=== PATIENT | male | born 1980 | race Caucasian/White ===

== ENCOUNTER 2017-12-12 21:32 | Emergency (ER) | payer MEDICAID ==
[~2017-12-12] VITALS: Ht 198.1 cm; Wt 113.0 kg
[~2017-12-12 21:32] MED LIST: BENZ-16 PO; DIPH-423 PO; DIPH25CA83 PO; IBUP-1574 PO; IBUP-1984 PO; NAPR-56 PO; NO HOME MEDS
[2017-12-12 21:34] VITALS: BP 135/93
[2017-12-12] MEDS ORDERED: CYCL-1 PO (21:56)
[2017-12-12] MEDS ORDERED: orphenadrine citrate 60mg/2ml inj. IM ONE (22:00)
[2017-12-12] MEDS ORDERED: ketorolac tromethamine 15mg/ml inj. IM ONE (22:00)
== END 2017-12-12 22:15 | disposition home or self-care (01) ==
LOC: ER 21:32
DX: S39.012A Strain of muscle, fascia and tendon of lower back, initial encounter (principal); G89.29 Other chronic pain; F12.10 Cannabis abuse, uncomplicated; F15.10 Other stimulant abuse, uncomplicated; Z79.899 Other long term (current) drug therapy; W01.0XXA Fall on same level from slipping, tripping and stumbling without subsequent striking against object, initial encounter; Y93.89 Activity, other specified; Y92.89 Other specified places as the place of occurrence of the external cause; Y99.8 Other external cause status
CPT/HCPCS: 99284; J1885; J2360

== ENCOUNTER 2018-01-22 11:37 | Emergency (ER) | payer MEDICAID ==
[~2018-01-22] VITALS: Ht 198.1 cm; Wt 118.0 kg
[~2018-01-22 11:37] MED LIST changes: +CYCL-1 PO
[2018-01-22 12:04] LABS: BASOPHILS % (AUTO) 0.5 % (0-1); EOSINOPHILS # (AUTO) 0.2 X10'3 (0-0.9); EOSINOPHILS % (AUTO) 3.1 % (0-6); HEMATOCRIT 49.6 % (42.0-52.0); HEMOGLOBIN 16.8 g/dl (14.0-17.9); LYMPHOCYTES # (AUTO) 1.7 X10'3 (1.1-4.8); LYMPHOCYTES % (AUTO) 23.9 % (21-51); MEAN CORPUSCULAR HGB CONC 33.9 % (33.0-36.5); MEAN CORPUSCULAR VOLUME 91.4 FL (78-98); MEAN PLATELET VOLUME 7.5 FL (7.4-10.4); MONOCYTES # (AUTO) 0.4 X10'3 (0-0.9); MONOCYTES % (AUTO) 5.2 % (2-12); NEUTROPHILS # (AUTO) 4.9 X10'3 (1.8-7.7); NEUTROPHILS % (AUTO) 67.3 % (42-75); PLATELET COUNT 233 X10'3 (140-440); RED BLOOD COUNT 5.43 X10'6 (4.70-6.10); RED CELL DISTRIBUTION WIDTH 13.7 % (11.5-14.5); WHITE BLOOD COUNT 7.3 X10'3 (4.5-11.0)
[2018-01-22 12:15] LABS: PARTIAL THROMBOPLASTIN TIME 27 SECONDS (22-32); PROTHROMBIN TIME 10.1 SECONDS (9.0-12.0)
[2018-01-22 12:21] LABS: ALANINE AMINOTRANSFERASE 100 U/L (12-78); ALBUMIN 3.8 G/DL (3.4-5.0); ALBUMIN/GLOBULIN RATIO 0.9 (1.1-1.5); ALKALINE PHOSPHATASE 109 IU/L (46-116); ANION GAP 13 (8-16); ASPARTATE AMINO TRANSFERASE 46 U/L (10-37); BILIRUBIN,TOTAL 0.4 MG/DL (0.1-1.0); BLOOD UREA NITROGEN 18 MG/DL (7-18); BUN/CREATININE RATIO 18.9 (5.4-32.0); CALCIUM 8.5 MG/DL (8.5-10.1); CHLORIDE 102 MMOL/L (99-107); CREATININE 0.95 MG/DL (0.60-1.10); GLUCOSE 124 MG/DL (70-104); POTASSIUM 3.8 MMOL/L (3.5-5.1); SODIUM 139 MMOL/L (135-145); TOTAL CARBON DIOXIDE 24.1 MMOL/L (24-32); TOTAL PROTEIN 7.9 G/DL (6.4-8.2); eGFR 89 ML/MIN
[2018-01-22 12:41] VITALS: BP 153/97
== END 2018-01-22 13:08 | disposition home or self-care (01) ==
LOC: ER 11:37
DX: R00.2 Palpitations (principal); R42 Dizziness and giddiness; G89.29 Other chronic pain; F17.200 Nicotine dependence, unspecified, uncomplicated; F12.90 Cannabis use, unspecified, uncomplicated; F15.90 Other stimulant use, unspecified, uncomplicated; Z79.899 Other long term (current) drug therapy
CPT/HCPCS: 36415; 71045; 80053; 84484; 85025; 85610; 85730; 93005; 99285; J7030

== ENCOUNTER 2018-02-03 12:12 | Emergency (ER) | payer MEDICAID ==
[~2018-02-03] VITALS: Ht 198.1 cm; Wt 125.3 kg
[2018-02-03 12:15] VITALS: BP 171/91
== END 2018-02-03 13:37 | disposition home or self-care (01) ==
LOC: ER 12:13
DX: R42 Dizziness and giddiness (principal); G89.29 Other chronic pain; F15.90 Other stimulant use, unspecified, uncomplicated; F12.90 Cannabis use, unspecified, uncomplicated; Z00.00 Encounter for general adult medical examination without abnormal findings; Z79.899 Other long term (current) drug therapy
CPT/HCPCS: 93005; 99283

== ENCOUNTER 2018-03-17 04:04 | Emergency (ER) | payer MEDICAID ==
[~2018-03-17] VITALS: Ht 195.6 cm; Wt 120.4 kg
[2018-03-17 05:44] VITALS: BP 113/70
== END 2018-03-17 06:26 | disposition home or self-care (01) ==
LOC: ER 04:04
DX: R07.9 Chest pain, unspecified (principal); F17.210 Nicotine dependence, cigarettes, uncomplicated; G89.29 Other chronic pain; F12.90 Cannabis use, unspecified, uncomplicated; F15.90 Other stimulant use, unspecified, uncomplicated
CPT/HCPCS: 99281

== ENCOUNTER 2018-06-26 16:02 | Emergency (ER) | payer MEDICAID ==
[~2018-06-26] VITALS: Ht 195.6 cm; Wt 123.6 kg
[2018-06-26 16:35] VITALS: BP 163/100
--- NOTE | 2018-06-26 19:23 | NUR ---
NO RESPONSE FROM LOBBY AFTER 3 ATTEMPTS TO ROOM. CALL PLACED TO NUMBER ON FILE, NUMBER DISCONNECTED. DR HARDY INFORMED.
== END 2018-06-26 19:24 | disposition left against medical advice (07) ==
LOC: ER 16:03
DX: R42 Dizziness and giddiness (principal); Z53.21 Procedure and treatment not carried out due to patient leaving prior to being seen by health care provider

== ENCOUNTER 2018-07-04 16:09 | Emergency (ER) | payer MEDICAID ==
[~2018-07-04] VITALS: Ht 195.6 cm; Wt 109.1 kg
[2018-07-04 16:16] VITALS: BP 131/56
[2018-07-04 16:44] LABS: BASOPHILS # (AUTO) 0.1 X10'3 (0-0.2); BASOPHILS % (AUTO) 0.8 % (0-1); EOSINOPHILS # (AUTO) 0.3 X10'3 (0-0.9); EOSINOPHILS % (AUTO) 3.2 % (0-6); HEMATOCRIT 51.9 % (42.0-52.0); LYMPHOCYTES # (AUTO) 2.8 X10'3 (1.1-4.8); LYMPHOCYTES % (AUTO) 31.4 % (21-51); MEAN CORPUSCULAR HEMOGLOBIN 31.1 PG (27.0-31.0); MEAN CORPUSCULAR HGB CONC 34.7 g/dL (33.0-36.5); MEAN CORPUSCULAR VOLUME 89.6 FL (78-98); MEAN PLATELET VOLUME 7.8 FL (7.4-10.4); MONOCYTES # (AUTO) 0.6 X10'3 (0-0.9); MONOCYTES % (AUTO) 6.2 % (2-12); NEUTROPHILS # (AUTO) 5.2 X10'3 (1.8-7.7); NEUTROPHILS % (AUTO) 58.4 % (42-75); PLATELET COUNT 256 X10'3 (140-440); RED CELL DISTRIBUTION WIDTH 13.7 % (11.5-14.5); WHITE BLOOD COUNT 8.9 X10'3 (4.5-11.0)
[2018-07-04 17:01] LABS: ALANINE AMINOTRANSFERASE 55 U/L (12-78); ALBUMIN 4.1 G/DL (3.4-5.0); ALBUMIN/GLOBULIN RATIO 1.1 (1.1-1.5); ALKALINE PHOSPHATASE 98 IU/L (46-116); ANION GAP 11 (8-16); ASPARTATE AMINO TRANSFERASE 22 U/L (10-37); BILIRUBIN,TOTAL 0.5 MG/DL (0.1-1.0); BLOOD UREA NITROGEN 17 MG/DL (7-18); BUN/CREATININE RATIO 15.5 (5.4-32.0); CALCIUM 9.7 MG/DL (8.5-10.1); CHLORIDE 103 MMOL/L (99-107); GLUCOSE 118 MG/DL (70-104); POTASSIUM 3.9 MMOL/L (3.5-5.1); SODIUM 140 MMOL/L (135-145); TOTAL CARBON DIOXIDE 25.8 MMOL/L (24-32); TOTAL PROTEIN 7.9 G/DL (6.4-8.2); eGFR 75 ML/MIN
[2018-07-04 17:06] LABS: PARTIAL THROMBOPLASTIN TIME 29 SECONDS (22-32); PROTHROMBIN TIME 10.5 SECONDS (9.0-12.0)
--- NOTE | 2018-07-04 19:31 | NUR ---
NO RESPONSE FROM LOBBY AFTER 1RST ATTEMPT TO ROOM. CALL PLACED TO NUMBER ON FILE. NUMBER IS A NON-WORKING NUMBER. DR HARDY INFORMED. WILL CONTINUE TO CHECK LOBBY 2 MORES TIME BEFORE REMOVING FROM TRACKER
== END 2018-07-04 20:35 | disposition left against medical advice (07) ==
LOC: ER 16:10
DX: R00.2 Palpitations (principal); R00.1 Bradycardia, unspecified; R07.89 Other chest pain; G89.29 Other chronic pain; F12.90 Cannabis use, unspecified, uncomplicated; F15.90 Other stimulant use, unspecified, uncomplicated; F17.210 Nicotine dependence, cigarettes, uncomplicated
CPT/HCPCS: 36415; 71045; 80053; 84484; 85025; 85610; 85730; 93005; 99284

== ENCOUNTER 2018-09-13 21:23 | Emergency (ER) | payer MEDICAID ==
[~2018-09-13] VITALS: Ht 198.1 cm; Wt 125.7 kg
[2018-09-13] MEDS ORDERED: normal saline 1000ML IV soln IVB ONE (21:50)
[2018-09-13 22:08] LABS: BASOPHILS # (AUTO) 0.1 X10'3 (0-0.2); BASOPHILS % (AUTO) 0.6 % (0-1); EOSINOPHILS # (AUTO) 0.3 X10'3 (0-0.9); EOSINOPHILS % (AUTO) 2.4 % (0-6); HEMATOCRIT 49.1 % (42.0-52.0); LYMPHOCYTES % (AUTO) 27.9 % (21-51); MEAN CORPUSCULAR HEMOGLOBIN 31.4 PG (27.0-31.0); MEAN CORPUSCULAR HGB CONC 34.7 g/dL (33.0-36.5); MEAN CORPUSCULAR VOLUME 90.6 FL (78-98); MEAN PLATELET VOLUME 7.8 FL (7.4-10.4); MONOCYTES # (AUTO) 0.6 X10'3 (0-0.9); MONOCYTES % (AUTO) 5.7 % (2-12); NEUTROPHILS # (AUTO) 6.9 X10'3 (1.8-7.7); NEUTROPHILS % (AUTO) 63.4 % (42-75); PLATELET COUNT 253 X10'3 (140-440); RED BLOOD COUNT 5.42 X10'6 (4.70-6.10); RED CELL DISTRIBUTION WIDTH 13.7 % (11.5-14.5); WHITE BLOOD COUNT 10.9 X10'3 (4.5-11.0)
--- NOTE | 2018-09-13 22:24 | NUR ---
to ct scan via wheelchair.
[2018-09-13 22:28] LABS: ALANINE AMINOTRANSFERASE 70 U/L (12-78); ALBUMIN 3.9 G/DL (3.4-5.0); ALBUMIN/GLOBULIN RATIO 1.1 (1.1-1.5); ALKALINE PHOSPHATASE 99 IU/L (46-116); ANION GAP 9 (8-16); ASPARTATE AMINO TRANSFERASE 31 U/L (10-37); BILIRUBIN,TOTAL 0.4 MG/DL (0.1-1.0); BLOOD UREA NITROGEN 16 MG/DL (7-18); BUN/CREATININE RATIO 15.8 (5.4-32.0); CHLORIDE 103 MMOL/L (99-107); CREATININE 1.01 MG/DL (0.60-1.10); GLUCOSE 115 MG/DL (70-104); POTASSIUM 3.5 MMOL/L (3.5-5.1); SODIUM 138 MMOL/L (135-145); TOTAL CARBON DIOXIDE 26.2 MMOL/L (24-32); TOTAL PROTEIN 7.6 G/DL (6.4-8.2); eGFR 83 ML/MIN
[2018-09-13] MEDS ORDERED: cloNIDine 0.1 mg tablet PO ONE (22:30)
[2018-09-13 22:46] VITALS: BP 146/93
[2018-09-13] MEDS ORDERED: ketorolac trometh. 30mg/ml inj. IV ONE (23:10)
[2018-09-13 23:23] LABS: CLARITY,URINE CLEAR (Clear); COLOR,URINE YELLOW (Yellow); GLUCOSE, URINE NEGATIVE (Neg); KETONES,URINE NEGATIVE (Neg); LEUKOCYTE ESTERASE ,URINE NEGATIVE (Neg); NITRITES, URINE NEGATIVE (Neg); OCCULT BLOOD,URINE NEGATIVE (Neg); PH,URINE 6.5 (4.8-8.0); PROTEIN,URINE NEGATIVE (Neg); UA COLLECTION TYPE CLN CATCH MIDSTREAM; UROBILINOGEN,URINE 0.2 E.U/dL (0.2-1.0)
== END 2018-09-13 23:34 | disposition home or self-care (01) ==
LOC: ER 21:23
DX: I16.0 Hypertensive urgency (principal); R51 Headache; G89.29 Other chronic pain; F12.90 Cannabis use, unspecified, uncomplicated; F15.90 Other stimulant use, unspecified, uncomplicated; F11.90 Opioid use, unspecified, uncomplicated
CPT/HCPCS: 36415; 70450; 80053; 81003; 84484; 85025; 93005; 96361; 96374; 99284; J1885; J7030

== ENCOUNTER 2019-01-17 17:02 | Emergency (ER) | payer MEDICAID ==
[~2019-01-17] VITALS: Ht 198.1 cm; Wt 118.2 kg
[2019-01-17 17:40] VITALS: BP 137/102
--- NOTE | 2019-01-17 18:26 | NUR ---
PATIENT STATES THAT HE HAS NOT HAD MUCH SLEEP AND CONTINUOS BAD DREAMS WELL. PATIENT STATED "MY BRAIN HURTS"; PT STATES THAT HE HAS HAD A CT SCAN BEFORE AND IT WAS OK. PT C/O OF NEVES NOW.
[2019-01-17] MEDS ORDERED: ibuprofen tablet 400 MG TABLET PO ONE (18:30)
[2019-01-17] MEDS ORDERED: PRAZ1CAP5 PO (19:15)
== END 2019-01-17 19:32 | disposition home or self-care (01) ==
LOC: ER 17:03
DX: R51 Headache (principal); F51.5 Nightmare disorder; G89.29 Other chronic pain; F12.90 Cannabis use, unspecified, uncomplicated; F15.90 Other stimulant use, unspecified, uncomplicated; F14.90 Cocaine use, unspecified, uncomplicated; Z79.899 Other long term (current) drug therapy
CPT/HCPCS: 93005; 99283

== ENCOUNTER 2019-02-02 18:30 | Emergency (ER) | payer MEDICAID ==
[~2019-02-02] VITALS: Ht 198.1 cm; Wt 118.5 kg
[~2019-02-02 18:30] MED LIST changes: -BENZ-16 PO; -CYCL-1 PO; -DIPH-423 PO; -DIPH25CA83 PO; -IBUP-1574 PO; -IBUP-1984 PO; -NAPR-56 PO; -NO HOME MEDS; +PRAZ1CAP5 PO
[2019-02-02 18:31] VITALS: BP 116/82
[2019-02-02] MEDS ORDERED: AMOX-422 PO (20:29)
== END 2019-02-02 20:37 | disposition home or self-care (01) ==
LOC: ER 18:31
DX: J32.9 Chronic sinusitis, unspecified (principal); G89.29 Other chronic pain; F12.90 Cannabis use, unspecified, uncomplicated; F15.90 Other stimulant use, unspecified, uncomplicated; F14.90 Cocaine use, unspecified, uncomplicated; F10.99 Alcohol use, unspecified with unspecified alcohol-induced disorder; Z79.899 Other long term (current) drug therapy; Y90.9 Presence of alcohol in blood, level not specified
CPT/HCPCS: 87502; 87503; 99283

== ENCOUNTER 2019-04-14 18:09 | Emergency (ER) | payer MEDICAID | END 2019-04-14 20:05 | disposition left against medical advice (07) | LOC: ER 18:11 | DX: M54.9 Dorsalgia, unspecified (principal); Z53.21 Procedure and treatment not carried out due to patient leaving prior to being seen by health care provider ==

== ENCOUNTER 2019-11-06 06:09 | Emergency (ER) | payer MEDICAID ==
[~2019-11-06] VITALS: Ht 193 cm; Wt 102.3 kg
--- NOTE | 2019-11-06 06:36 | NUR ---
Xray in room
[2019-11-06] MEDS ORDERED: HYDROcodone/acetaminophen 10/325mg tab PO ONE (07:45)
[2019-11-06] MEDS ORDERED: HYDR-4353 PO (08:05)
[2019-11-06 08:12] VITALS: BP 125/90
== END 2019-11-06 08:14 | disposition home or self-care (01) ==
LOC: ER 06:10
DX: S63.591A Other specified sprain of right wrist, initial encounter (principal); G89.29 Other chronic pain; F12.90 Cannabis use, unspecified, uncomplicated; F15.90 Other stimulant use, unspecified, uncomplicated; F14.90 Cocaine use, unspecified, uncomplicated; Z72.89 Other problems related to lifestyle; Z79.899 Other long term (current) drug therapy; X50.1XXA Overexertion from prolonged static or awkward postures, initial encounter; Y93.89 Activity, other specified; Y92.89 Other specified places as the place of occurrence of the external cause; Y99.8 Other external cause status
CPT/HCPCS: 29125; 73100; 73110; 99284

== ENCOUNTER 2019-11-12 18:08 | Emergency (ER) | payer MEDICAID ==
[~2019-11-12] VITALS: Ht 198.1 cm; Wt 97.7 kg
[~2019-11-12 18:08] MED LIST changes: +HYDR-4353 PO
[2019-11-12 18:13] VITALS: BP 123/77
[2019-11-12] MEDS ORDERED: IBUP-1984 PO (20:33)
[2019-11-12] MEDS ORDERED: ibuprofen tablet 400 MG TABLET PO ONE (20:35)
--- NOTE | 2019-11-14 14:09 | NUR ---
pt. has a phone number listed that no longer belongs to this person. i called and left a message on his next of kin. it is listed as mohit (mother) i asked her to have terrance call us back over an x-ray result. pt. needs to return to the er and have a thumb spikea splint placet and needs to get a referal to orthopedist.
--- NOTE | 2019-11-16 10:01 | NUR ---
Attempted to get a hold of patient for the third time, will sent letter to listed address. Patients right wrist fx was missed and patient needs to be returning to ED for a thumb spika splint and referral to ortho.
== END 2019-11-12 21:02 | disposition home or self-care (01) ==
LOC: ER 18:09
DX: M25.531 Pain in right wrist (principal); G89.29 Other chronic pain; F12.90 Cannabis use, unspecified, uncomplicated; F15.90 Other stimulant use, unspecified, uncomplicated; F14.90 Cocaine use, unspecified, uncomplicated; Z72.89 Other problems related to lifestyle; Z79.899 Other long term (current) drug therapy
CPT/HCPCS: 29125; 73100; 99283

== ENCOUNTER 2019-12-08 08:36 | Emergency (ER) | payer MEDICAID ==
[~2019-12-08] VITALS: Ht 193 cm; Wt 100.0 kg
[2019-12-08 08:39] VITALS: BP 131/81
--- NOTE | 2019-12-08 08:55 | NUR ---
Pt. is trying to get into a rehab for meth. abuse.
== END 2019-12-08 09:27 | disposition home or self-care (01) ==
LOC: ER 08:37
DX: F15.10 Other stimulant abuse, uncomplicated (principal); G89.29 Other chronic pain; F12.90 Cannabis use, unspecified, uncomplicated; F14.90 Cocaine use, unspecified, uncomplicated; Z72.89 Other problems related to lifestyle; Z79.899 Other long term (current) drug therapy
CPT/HCPCS: 99281

== ENCOUNTER 2021-04-21 15:45 | Emergency (ER) | payer MEDICAID ==
[~2021-04-21] VITALS: Ht 195.6 cm; Wt 104.5 kg
[~2021-04-21 15:45] MED LIST changes: -HYDR-4353 PO
[2021-04-21 17:20] VITALS: BP 128/100
== END 2021-04-21 19:50 | disposition left against medical advice (07) ==
LOC: ER 15:45
DX: R10.30 Lower abdominal pain, unspecified (principal); F12.90 Cannabis use, unspecified, uncomplicated; F15.90 Other stimulant use, unspecified, uncomplicated; F14.90 Cocaine use, unspecified, uncomplicated; G89.29 Other chronic pain; Z72.89 Other problems related to lifestyle; Z79.899 Other long term (current) drug therapy
CPT/HCPCS: 99281

== ENCOUNTER 2023-03-23 17:45 | Emergency (ER) | payer MEDICAID ==
[~2023-03-23] VITALS: Ht 195.6 cm; Wt 102.4 kg
[2023-03-23 17:54] VITALS: TEMP 97.6
[2023-03-23] MEDS ORDERED: iohexol 350MG/ML 100ml bottle IV ONE (18:13)
[2023-03-23 18:22] LABS: BASOPHILS # (AUTO) 0.1 X10'3 (0-0.2); EOSINOPHILS # (AUTO) 0.4 X10'3 (0-0.9); HEMATOCRIT 44.3 % (42.0-52.0); HEMOGLOBIN 14.6 g/dl (14.0-17.9); LYMPHOCYTES % (AUTO) 23.1 % (21-51); MEAN CORPUSCULAR HEMOGLOBIN 30.5 PG (27.0-31.0); MEAN CORPUSCULAR VOLUME 92.5 FL (78-98); MEAN PLATELET VOLUME 6.8 FL (7.4-10.4); MONOCYTES # (AUTO) 0.8 X10'3 (0-0.9); MONOCYTES % (AUTO) 5.8 % (2-12); NEUTROPHILS # (AUTO) 8.8 X10'3 (1.8-7.7); NEUTROPHILS % (AUTO) 67.1 % (42-75); PLATELET COUNT 305 X10'3 (140-440); RED BLOOD COUNT 4.79 X10'6 (4.70-6.10); RED CELL DISTRIBUTION WIDTH 14.7 % (11.5-14.5); WHITE BLOOD COUNT 13.1 X10'3 (4.5-11.0)
[2023-03-23 18:56] LABS: ALANINE AMINOTRANSFERASE 26 U/L (12-78); ALBUMIN 3.9 G/DL (3.4-5.0); ALBUMIN/GLOBULIN RATIO 1.1 (1.1-1.5); ALKALINE PHOSPHATASE 127 IU/L (46-116); ANION GAP 7 (8-16); ASPARTATE AMINO TRANSFERASE 15 U/L (10-37); BILIRUBIN,TOTAL 0.2 MG/DL (0.1-1.0); BLOOD UREA NITROGEN 24 MG/DL (7-18); BUN/CREATININE RATIO 22.9 (10.0-20.0); CALCIUM 9.1 MG/DL (8.5-10.1); CHLORIDE 103 MMOL/L (99-107); CREATININE 1.05 MG/DL (0.60-1.10); GLUCOSE 119 MG/DL (70-104); LIPASE 35 U/L (16-77); POTASSIUM 4.4 MMOL/L (3.5-5.1); SODIUM 137 MMOL/L (135-145); TOTAL CARBON DIOXIDE 27.3 MMOL/L (24-32); TOTAL PROTEIN 7.6 G/DL (6.4-8.2); eCRCL 114 ML/MIN; eGFR 77 ML/MIN
[2023-03-23 20:49] LABS: PLATELET ESTIMATE NORMAL; TOTAL CELLS COUNTED 100
[2023-03-23] MEDS ORDERED: ondansetron 4mg rapidly disintigrating tab PO ONE (22:25)
[2023-03-23] MEDS ORDERED: HYDROcodone/acetaminophen 5mg/325mg tablet PO ONE (22:25)
[2023-03-23 22:27] VITALS: BP 127/74; PULSE 88; O2SAT 94
[2023-03-23 22:40] VITALS: RESP 16
== END 2023-03-23 23:04 | disposition home or self-care (01) ==
LOC: ER 17:47
DX: K40.20 Bilateral inguinal hernia, without obstruction or gangrene, not specified as recurrent (principal); F15.90 Other stimulant use, unspecified, uncomplicated; F12.90 Cannabis use, unspecified, uncomplicated; Z79.899 Other long term (current) drug therapy
CPT/HCPCS: 36415; 74177; 80053; 83690; 85007; 85025; 99285; J3490; Q9967

== ENCOUNTER 2025-04-13 10:47 | Emergency (ER) | payer MEDICAID ==
[~2025-04-13] VITALS: Ht 193 cm; Wt 114.5 kg
--- NOTE | 2025-04-13 11:04 | Physician Documentation ---
History of Present Illness Chief Complaint: Abdominal Pain w/vomiting Stated Complaint: ABD PAIN Primary Medical Doctor: n/a HPI Patient is a very pleasant 45-year-old male that presents to the emergency department via ambulance for complaints of abdominal pain accompanied by nausea vomiting diarrhea. Patient denies any other symptoms at this time. Medication Reconciliation Allergies: Coded Allergies: No Known Allergies (Unverified , 04/13/25) Scheduled Prazosin Hcl (Prazosin Hcl), 1 CAP PO HS Scheduled PRN ONDANSETRON ODT 4mg tablet (Ondansetron Odt), 1 TABLET PO Q6H PRN for nausea/vomiting Past Medical History Past Medical History: Headache, Chronic Pain Past Surgical History: noncontributory Alcohol Use: Occasionally Drug Use: marijuana, methamphetamine, cocaine Lives In: Home Review of Systems All Other Systems at this time: Reviewed and Negative Physical Exam Vital Signs: Temperature: 97.6, Source: Oral, Heart Rate: 62, Respiratory Rate: 22, BP: 170/90, Pulse Oximetry: 98, Weight: 114.550 Oxygen Flow Rate: 0 Physical Exam VITALS: Reviewed and as above. GENERAL: Alert, no apparent distress. HEENT: Normocephalic, atraumatic, PERRL, EOMI, dry mucosa, no erythema RESPIRATORY: Lungs clear, normal breath sounds, no respiratory distress. CHEST: No accessory muscle use, no retractions CV: Regular rate, rhythm, no edema, no murmur, No: JVD GI: Soft, mild diffuse abdominal tenderness, bowels sounds present, no rebound, guarding, or rigidity BACK: No CVA tenderness, or swelling MUSCULOSKELETAL: No deformities, no edema SKIN: Warm and dry, no rash NEURO: Oriented x4, No motor or sensory deficit PSYCH: Normal mood and affect, no agitation Progress Results/Orders Results/Orders Vital Signs 04/13/25 10:51 Temp 97.6 Pulse 62 Resp 22 B/P (MAP) 170/90 Pulse Ox 98 O2 Flow Rate 0 Medical Decision Making Additional information obtaine: old records Findings The patient presented with nausea and vomiting and a headache the patient was treated in the emergency department with a cocktail of medication for nausea as well as IV Tylenol and IV Toradol. The patient had significant improvement of his symptoms he states his nausea has completely resolved after 2 L of fluid he states he continues to have a slight headache. The patient's prior hospitalizations has been reviewed etiologies considered but not supported by the clinical evidence include biliary tract disease renal colic colitis small- bowel obstruction. The patient's pulse ox was interpreted as adequate normal. The patient's vehicle monitor technician was interpreted as normal sinus rhythm. The patient will be discharged with a prescription for Zofran Differential Dx:Considerations: Appendicitis, Bowel obstruction, Cholangitis, Cholelithasis, Gastritis/PUD, GI hemorrhage Additional Comments none Departure Disposition: HOME / SELF CARE / HOMELESS Impression: Primary Impression: Vomiting Qualified Codes: R11.2 - Nausea with vomiting, unspecified Additional Impressions: Headache Qualified Codes: R51.9 - Headache, unspecified Dehydration Discharge Instructions: Dehydration, Adult, Viral Gastroenteritis, Adult, [id number] Referrals: NO PRIMARY CARE PROVIDER (PCP) Prescriptions ONDANSETRON ODT 4mg tablet (ONDANSETRON ODT) 4 Mg Tab.rapdis 1 TABLET PO Q6H PRN for nausea/vomiting, #12 TABLET Prov: LAZARA COWAN MD 04/13/25 Signature Scribe Signature: no scribe Attestation: The note accurately reflects work and decisions made by me.Lazara Cowan MD 04/16/25 06:47 WILLY MARES Apr 13, 2025 11:04 LAZARA COWAN MD Apr 13, 2025 12:58
[2025-04-13 11:36] LABS: MEAN PLATELET VOLUME 7.8 FL (7.4-10.4); RED CELL DISTRIBUTION WIDTH 14.1 % (11.5-14.5)
[2025-04-13 11:59] LABS: CREATININE 0.79 MG/DL (0.60-1.10); TOTAL CARBON DIOXIDE 19.8 MMOL/L (24-32); eCRCL 145 ML/MIN; eGFR > 90 ML/MIN
[2025-04-13] MEDS: ketorolac trometh 15mg/ml vial 15 MG/ML ML IV ONE (13:37)
[2025-04-13] MEDS: metoclopramide 5 mg/ml inj IV ONE (13:38)
[2025-04-13] MEDS: acetaminophen 1,000mg/100ml IV 100 ML IV ONE (13:42)
[2025-04-13] MEDS: normal saline 1000ML IV soln IVB ONE (13:44)
[2025-04-13 14:02] VITALS: BP 156/105; PULSE 89; RESP 16; O2SAT 99
[2025-04-13] MEDS ORDERED: ONDA-243 PO (14:13)
[2025-04-13 16:27] VITALS: TEMP 97.6
== END 2025-04-13 16:29 | disposition home or self-care (01) ==
LOC: ER 10:48
DX: R11.10 Vomiting, unspecified (principal); R51.9 Headache, unspecified; G89.29 Other chronic pain; E86.0 Dehydration; F12.90 Cannabis use, unspecified, uncomplicated; F15.90 Other stimulant use, unspecified, uncomplicated; F14.90 Cocaine use, unspecified, uncomplicated; Z79.899 Other long term (current) drug therapy; Z72.89 Other problems related to lifestyle
CPT/HCPCS: 36415; 80053; 83690; 84145; 85025; 96361; 96374; 96375; 99284; J0131; J1200; J1885; J2765; J7030